=== PATIENT | male | born 1950 | race African-American/Black ===

== ENCOUNTER 2019-02-10 15:45 | Emergency (ER) | payer OTHER, MEDICAID ==
[~2019-02-10] VITALS: Ht 165.1 cm; Wt 83.9 kg
[2019-02-10 16:11] VITALS: Ht 165.1 cm; Wt 83.9 kg
[2019-02-10 17:33] VITALS: BP 133/87
== END 2019-02-10 17:33 | disposition home or self-care (01) ==
LOC: ED 15:45
DX: J06.9 Acute upper respiratory infection, unspecified (principal); I10 Essential (primary) hypertension; Z85.038 Personal history of other malignant neoplasm of large intestine